=== PATIENT | female | born 1990 | race Native Hawaiian/Other Pacific Islander ===

== ENCOUNTER → 2017-03-05 11:03 | Outpatient (CLI) | payer BC | END | disposition home or self-care (01) | LOC: AMB 11:03 | DX: Z04.1 Encounter for examination and observation following transport accident (principal) ==

== ENCOUNTER 2017-03-06 11:55 | Emergency (ER) | payer BC, OTHER ==
[~2017-03-06] VITALS: Ht 149.9 cm; Wt 49.0 kg
[2017-03-06 15:30] VITALS: BP 106/57; TEMP 98
== END 2017-03-06 15:30 | disposition home or self-care (01) ==
LOC: ED 11:55
DX: S16.1XXA Strain of muscle, fascia and tendon at neck level, initial encounter (principal); S39.012A Strain of muscle, fascia and tendon of lower back, initial encounter; V89.2XXA Person injured in unspecified motor-vehicle accident, traffic, initial encounter
CPT/HCPCS: 99283